=== PATIENT | male | born 1985 ===

== ENCOUNTER 2016-12-09 12:34 | Emergency (ER) | payer SELFPAY ==
[2016-12-09 12:57] VITALS: RESP 18; TEMP 97.8
[2016-12-09] MEDS ORDERED: Sodium Chloride 0.9% 1,000 ML IV STA (13:20)
--- NOTE | 2016-12-09 13:26 | ED PDOC ---
Arrival/HPI - General Chief Complaint: Lower Extremity Problem/Injury Time Seen by Provider: 12/09/16 13:11 Historian: Patient, Torch Solderer (Scribe who translated for patient when needed) - History of Present Illness Narrative History of Present Illness (Text): 12/09/16 13:21 A 31 year old male, who denies any past medical history, presents to the emergency department complaining of constant right lower extremity pain for the past 3 days. Patient reports his pain begins in the back of his foot and radiates up towards right buttock. He states his pain is worse in his right calf and describes it as a cramping sensation. Patient denies any relieving or exacerbating factors. Patient denies any falls, injuries, trauma, fever, nausea , vomiting, diarrhea, abdominal pain, urinary symptoms, back pain, chest pain, shortness of breath or any other complaints. PMD: None Time/Duration: Other (3 days) Symptom Course: Unchanged Quality: Other Context: Other Past Medical History - Provider Review Nursing Documentation Reviewed: Yes - Infectious Disease Hx of Infectious Diseases: None - Psychiatric Hx Substance Use: No Family/Social History - Physician Review Nursing Documentation Reviewed: Yes Family/Social History: No Known Family HX Smoking Status: Light Smoker < 10 Cigarettes Daily Hx Alcohol Use: Yes Frequency of alcohol use: Socially Hx Substance Use: No Allergies/Home Meds Allergies/Adverse Reactions: Allergies No Known Allergies Allergy (Verified 12/09/16 12:56) Review of Systems - Physician Review All systems were reviewed & negative as marked: Yes - Review of Systems Constitutional: absent: Fevers Respiratory: absent: SOB Cardiovascular: absent: Chest Pain Gastrointestinal: absent: Abdominal Pain, Diarrhea, Nausea, Vomiting Genitourinary Male: absent: Dysuria, Frequency, Hematuria, Urinary Output Changes Musculoskeletal: absent: Back Pain, Other (Right lower extremity pain from bottom of foot radiating to buttock, worse in calf region) Physical Exam Vital Signs Reviewed: Yes Vital Signs Temp Pulse Resp BP Pulse Ox 12/09/16 14:43 47 L 18 136/66 99 12/09/16 12:52 97.8 F 51 L 18 139/89 97 Temperature: Afebrile Blood Pressure: Normal Pulse: Bradycardic Respiratory Rate: Normal Appearance: Positive for: Well-Appearing, Non-Toxic, Comfortable Pain Distress: None Mental Status: Positive for: Alert and Oriented X 3 - Systems Exam Head: Present: Atraumatic, Normocephalic Pupils: Present: PERRL Extroacular Muscles: Present: EOMI Conjunctiva: Present: Normal Respiratory/Chest: Present: Clear to Auscultation, Good Air Exchange. No: Respiratory Distress, Accessory Muscle Use Cardiovascular: Present: Regular Rate and Rhythm, Normal S1, S2. No: Murmurs Lower Extremity: Present: CALF TENDERNESS (Right sided calf tenderness to palpation), NORMAL PULSES, Tenderness (pinpoint tenderness to R buttock and along R lateral thigh). No: Edema Neurological: Present: GCS=15, CN II-XII Intact, Speech Normal Skin: Present: Warm, Dry, Normal Color. No: Rashes Psychiatric: Present: Alert, Oriented x 3, Normal Insight, Normal Concentration Medical Decision Making ED Course and Treatment: 12/09/16 13:21 Impression: A 31 year old male with right lower extremity pain. Patient notes radiating pain from bottom of foot towards buttock, however worse in calf region. Patient denies any trauma or injuries. No indication for imaging due to lack of trauma and not consistent with fracture. Will order ultrasound to rule out DVT. Differential Diagnosis included but are not limited to: DVT vs. Sciatica vs. Musculoskeletal strain. R/o electrolyte abnormality Plan: -- Duplex lower extremity ultrasound -- Labs -- Toradol and IV fluids -- Reassess and disposition Progress Notes: 12/09/16 14:44 U/s negative for dvt. Labs WNL. Instructed to take anti-inflammatories and flexeril as needed and f/u with PMD - Lab Interpretations Lab Results: 12/09/16 13:54 12/09/16 13:54 Lab Results 12/09/16 13:54: Sodium 140, Potassium 4.2, Chloride 102, Carbon Dioxide 28, Anion Gap 14, BUN 16, Creatinine 0.9, Est GFR ( Amer) > 60, Est GFR (Non- Af Amer) > 60, Random Glucose 82, Calcium 9.4 12/09/16 13:54: WBC 6.1, RBC 5.15, Hgb 16.2, Hct 45.4, MCV 88.2, MCH 31.5, MCHC 35.7, RDW 12.8, Plt Count 251, MPV 9.4, Gran % 45.5 L, Lymph % (Auto) 40.9 H, [place]arton % (Auto) 9.1 H, Eos % (Auto) 3.8, Baso % (Auto) 0.7, Gran # 2.79, Lymph # 2.5, [place]arton # 0.6, Eos # 0.2, Baso # 0.04 I have reviewed the lab results: Yes - RAD Interpretation Radiology Orders: 12/09/16 13:20 DUPLEX LOWER EXTRM VEIN RIGHT [US] Stat - Medication Orders Current Medication Orders: Discontinued Medications Sodium Chloride (Sodium Chloride 0.9%) 1,000 mls @ 999 mls/hr IV .Q1H1M STA Stop: 12/09/16 14:20 Last Admin: 12/09/16 13:59 Dose: 999 mls/hr Ketorolac Tromethamine (Toradol) 30 mg IVP STAT STA Stop: 12/09/16 13:21 Last Admin: 12/09/16 13:59 Dose: 30 mg - Scribe Statement The provider has reviewed the documentation as recorded by the Brittany Sr Provider Scribe Attestation: All medical record entries made by the Scribe were at my direction and personally dictated by me. I have reviewed the chart and agree that the record accurately reflects my personal performance of the history, physical exam, medical decision making, and the department course for this patient. I have also personally directed, reviewed, and agree with the discharge instructions and disposition. Disposition/Present on Arrival - Present on Arrival Any Indicators Present on Arrival: No History of DVT/PE: No History of Uncontrolled Diabetes: No Urinary Catheter: No History of Decub. Ulcer: No History Surgical Site Infection Following: None - Disposition Have Diagnosis and Disposition been Completed?: Yes Diagnosis: Leg pain, right Disposition: HOME/ ROUTINE Disposition Time: 14:45 Patient Plan: Discharge Patient Problems: Current Active Problems Problem Status Onset Leg pain, right Acute Condition: GOOD Discharge Instructions (ExitCare): Sciatica (ED) Print Language: [place] Additional Instructions: Follow up with PMD within 2 days. Return to ED if condition worsens. Motrin for pain. Flexeril for severe pain. Prescriptions: Cyclobenzaprine [Flexeril] 5 mg PO TID #20 tab Referrals: PCP,NO [Primary Care Provider] - Follow up with primary
[2016-12-09 13:55] LABS: ADD MANUAL DIFF? NO
[2016-12-09 13:59] LABS: BASO # 0.04 K/mm3 (0.0-2.0); BASO % 0.7 % (0.0-3.0); EOS # 0.2 (0.0-0.7); EOS % 3.8 % (1.5-5.0); GRAN # 2.79 (1.4-6.5); GRAN % 45.5 % (50.0-68.0); HEMATOCRIT 45.4 % (42.0-52.0); LYMPH # 2.5 (1.2-3.4); LYMPH % 40.9 % (22.0-35.0); MEAN CELL VOLUME 88.2 fL (80.0-105.0); MEAN CORPUSCULAR HEMOGLOBIN 31.5 pg (25.0-35.0); MEAN CORPUSCULAR HGB CONC 35.7 g/dl (31.0-37.0); MEAN PLATELET VOLUME 9.4 fl (7.0-11.0); MONO # 0.6 (0.1-0.6); MONO % 9.1 % (1.0-6.0); PLATELET COUNT 251 10^3/uL (120.0-450.0); RED CELL DISTRIBUTION WIDTH 12.8 % (11.5-14.5); WHITE BLOOD COUNT 6.1 10^3/ul (4.5-11.0)
[2016-12-09 14:12] LABS: BLOOD UREA NITROGEN 16 mg/dL (7-21); CALCIUM 9.4 mg/dL (8.4-10.5); CARBON DIOXIDE 28 mmol/L (21-33); CHLORIDE 102 mmol/L (98-107); GFR AFRICAN-AMERICAN > 60; GLUCOSE,RANDOM 82 mg/dL (70-110); POTASSIUM 4.2 mmol/L (3.6-5.0); SODIUM 140 mmol/L (132-148)
[2016-12-09 14:43] VITALS: BP 136/66; PULSE 47; O2SAT 99
--- NOTE | 2016-12-09 16:16 | US ---
PROCEDURE: Right lower extremity venous US HISTORY: Leg pain and swelling. Evaluate for DVT. PHYSICIAN(S): Michele Dudley M.D. TECHNIQUE: Duplex sonography and color-flow Doppler with graded compression were used to evaluate the deep venous system of the right lower extremity. FINDINGS: The visualized deep venous system of the right lower extremity is sonographically normal and compressible. Normal waveforms and augmentation are seen. There is no sonographic evidence for deep venous thrombosis in the visualized segments of the right lower extremity. IMPRESSION: 1. No sonographic evidence for deep venous thrombosis in the visualized segments of the right lower extremity.
== END 2016-12-09 15:00 | disposition home or self-care (01) ==
LOC: ED 12:34
DX: M79.604 Pain in right leg (principal); F17.210 Nicotine dependence, cigarettes, uncomplicated
CPT/HCPCS: 80048; 85025; 93971; 96374; 99283; J1885; J7040